=== PATIENT | male | born 1975 | race Caucasian/White ===

== ENCOUNTER 2017-10-11 17:20 | Inpatient (IN) | payer SELFPAY ==
[~2017-10-11] VITALS: Ht 162.6 cm; Wt 75.4 kg
[2017-10-11 18:56] LABS: CALCIUM 8.4 mg/dL (8.5-10.1); CHLORIDE SERUM 97 mmol/L (98-107); CREATININE SERUM 1.1 mg/dL (0.7-1.3); GFR1 > 60 mL/min; GLUCOSE SERUM 154 mg/dL (74-106); POTASSIUM SERUM 4.4 mmol/L (3.5-5.1); SODIUM SERUM 132 mmol/L (136-145)
[2017-10-11 19:00] LABS: ALKALINE PHOSPHATASE 92 U/L (46-116); ALT/SGPT 23 U/L (16-63); AMYLASE 28 U/L (25-115); AST/SGOT 14 U/L (15-37); BILIRUBIN TOTAL 0.9 mg/dL (0.20-1.00); LIPASE 57 IU/L (73-393); TOTAL PROTEIN, SERUM 7.1 g/dL (6.4-8.2)
[2017-10-11 19:01] LABS: ALBUMIN 3.3 g/dL (3.4-5.0)
[2017-10-11 19:15] LABS: PLATELET COUNT 436 x10^3mcL (130-400)
[2017-10-11 19:18] LABS: BAND NEUTROPHIL 0 % (0-10); BASOPHIL 0 % (0-2); MONOCYTE 3 % (0-7); SEGMENTED NEUTROPHILS 94 % (37-75)
[2017-10-11 19:19] LABS: PLATELET MORPHOLOGY PLATELETS INCREASED; rbc morphology (normal/abnorm) NORMAL (NORMAL)
[2017-10-11 20:56] VITALS: BP 126/77
[2017-10-11 21:22] LABS: CHOLESTEROL/HDL RATIO 2.8; MAGNESIUM 1.8 mg/dL (1.8-2.4); PHOSPHOROUS 3.2 mg/dL (2.5-4.9)
[2017-10-11 21:30] LABS: T3 TOTAL 1.12 ng/mL
[2017-10-11 21:31] LABS: FREE THYROXINE INDEX 2.5 ug/dL (1.4-4.5); T4(THYROXINE) 7.3 ug/dL (4.7-13.3)
[2017-10-12] VITALS (7 sets, daily range): BP systolic 106–124; BP diastolic 62–81
[2017-10-12 01:42] LABS: UA SPECIFIC GRAVITY 1.025 (1.005-1.035); microscopic required? YES; urine erythrocyte NEGATIVE (NEGATIVE)
[2017-10-12 02:06] LABS: AMPHETAMINE QUAL UR POSITIVE (NEG <=1000)
[2017-10-12 06:19] LABS: PLATELET COUNT 392 x10^3mcL (130-400); RED CELL DISTRIBUTION WIDTH 13.4 % (11.5-14.5)
[2017-10-12 06:25] LABS: CALCIUM 7.4 mg/dL (8.5-10.1); CHLORIDE SERUM 103 mmol/L (98-107); CREATININE SERUM 0.8 mg/dL (0.7-1.3); GFR1 > 60 mL/min; GLUCOSE SERUM 127 mg/dL (74-106); POTASSIUM SERUM 3.7 mmol/L (3.5-5.1); SODIUM SERUM 135 mmol/L (136-145)
[2017-10-12 11:00] LABS: BAND NEUTROPHIL 11 % (0-10); BASOPHIL 0 % (0-2); MONOCYTE 1 % (0-7); SEGMENTED NEUTROPHILS 84 % (37-75)
[2017-10-12 11:02] LABS: PLATELET MORPHOLOGY PLATELETS INCREASED; rbc morphology (normal/abnorm) NORMAL (NORMAL)
[2017-10-13 06:43] VITALS: BP 128/74
[2017-10-13 07:08] LABS: PLATELET COUNT 396 x10^3mcL (130-400); RED CELL DISTRIBUTION WIDTH 13.4 % (11.5-14.5)
[2017-10-13 07:22] LABS: CALCIUM 7.8 mg/dL (8.5-10.1); CARBON DIOXIDE 25.6 mmol/L (21-32); CHLORIDE SERUM 105 mmol/L (98-107); CREATININE SERUM 0.9 mg/dL (0.7-1.3); GFR1 > 60 mL/min; GLUCOSE SERUM 119 mg/dL (74-106); MAGNESIUM 1.8 mg/dL (1.8-2.4); PHOSPHOROUS 2.2 mg/dL (2.5-4.9); POTASSIUM SERUM 3.9 mmol/L (3.5-5.1); SODIUM SERUM 136 mmol/L (136-145)
[2017-10-13 08:54] VITALS: BP 134/94
[2017-10-13 11:50] LABS: BAND NEUTROPHIL 32 % (0-10); BASOPHIL 0 % (0-2); METAMYELOCTE 2 % (0-2); MONOCYTE 5 % (0-7); SEGMENTED NEUTROPHILS 54 % (37-75)
[2017-10-13 11:52] LABS: PLATELET MORPHOLOGY PLATELETS NORMAL
[2017-10-13 14:20] VITALS: BP 139/92
[2017-10-13 20:49] VITALS: BP 111/71
[2017-10-14 05:59] VITALS: BP 141/84
[2017-10-14 06:33] LABS: PLATELET COUNT 379 x10^3mcL (130-400); RED CELL DISTRIBUTION WIDTH 13.9 % (11.5-14.5)
[2017-10-14 06:47] LABS: CALCIUM 7.6 mg/dL (8.5-10.1); CARBON DIOXIDE 28.5 mmol/L (21-32); CHLORIDE SERUM 103 mmol/L (98-107); CREATININE SERUM 0.9 mg/dL (0.7-1.3); GFR1 > 60 mL/min; GLUCOSE SERUM 140 mg/dL (74-106); PHOSPHOROUS 2.1 mg/dL (2.5-4.9); POTASSIUM SERUM 3.8 mmol/L (3.5-5.1); SODIUM SERUM 136 mmol/L (136-145)
[2017-10-14 07:32] LABS: BAND NEUTROPHIL 3 % (0-10); MONOCYTE 2 % (0-7); SEGMENTED NEUTROPHILS 91 % (37-75); rbc morphology (normal/abnorm) NORMAL (NORMAL)
[2017-10-14 09:33] VITALS: BP 134/92
[2017-10-14 17:06] VITALS: BP 161/103
[2017-10-14 21:00] VITALS: BP 150/102
[2017-10-14 22:01] VITALS: BP 142/99
[2017-10-15 05:18] VITALS: BP 152/95
[2017-10-15 07:05] LABS: CALCIUM 7.6 mg/dL (8.5-10.1); CHLORIDE SERUM 101 mmol/L (98-107); CREATININE SERUM 0.8 mg/dL (0.7-1.3); GFR1 > 60 mL/min; GLUCOSE SERUM 130 mg/dL (74-106); POTASSIUM SERUM 3.3 mmol/L (3.5-5.1); RED CELL DISTRIBUTION WIDTH 14.1 % (11.5-14.5); SODIUM SERUM 136 mmol/L (136-145)
[2017-10-15 07:16] LABS: PLATELET COUNT 441 x10^3mcL (130-400)
[2017-10-15 09:41] VITALS: BP 168/96
[2017-10-15 11:35] LABS: BAND NEUTROPHIL 4 % (0-10); BASOPHIL 0 % (0-2); MONOCYTE 5 % (0-7); SEGMENTED NEUTROPHILS 86 % (37-75)
[2017-10-15 11:36] LABS: PLATELET MORPHOLOGY PLATELETS NORMAL
[2017-10-15 16:09] VITALS: BP 148/98
[2017-10-15 19:30] VITALS: BP 153/102
[2017-10-15 20:12] VITALS: BP 153/102
[2017-10-15 23:03] VITALS: BP 152/99
[2017-10-16] VITALS (12 sets, daily range): BP systolic 138–181; BP diastolic 89–109
[2017-10-16 06:35] LABS: BASOPHIL % 0.1 % (0-2); RED CELL DISTRIBUTION WIDTH 14.1 % (11.5-14.5)
[2017-10-16 06:39] LABS: PLATELET COUNT 452 x10^3mcL (130-400)
[2017-10-16 06:49] LABS: CALCIUM 8.1 mg/dL (8.5-10.1); CARBON DIOXIDE 30.1 mmol/L (21-32); CHLORIDE SERUM 104 mmol/L (98-107); CREATININE SERUM 0.7 mg/dL (0.7-1.3); GFR1 > 60 mL/min; GLUCOSE SERUM 141 mg/dL (74-106); PHOSPHOROUS 3.5 mg/dL (2.5-4.9); SODIUM SERUM 139 mmol/L (136-145)
[2017-10-17] VITALS (7 sets, daily range): BP systolic 149–168; BP diastolic 85–108
[2017-10-17 06:19] LABS: BASOPHIL % 0.2 % (0-2); RED CELL DISTRIBUTION WIDTH 14.3 % (11.5-14.5)
[2017-10-17 06:46] LABS: CALCIUM 8.3 mg/dL (8.5-10.1); CARBON DIOXIDE 28.6 mmol/L (21-32); CHLORIDE SERUM 103 mmol/L (98-107); CREATININE SERUM 0.6 mg/dL (0.7-1.3); GFR1 > 60 mL/min; GLUCOSE SERUM 108 mg/dL (74-106); POTASSIUM SERUM 3.4 mmol/L (3.5-5.1); SODIUM SERUM 137 mmol/L (136-145)
[2017-10-17 07:27] LABS: PLATELET COUNT 508 x10^3mcL (130-400)
[2017-10-18 05:38] VITALS: BP 146/101
[2017-10-18 06:21] LABS: CALCIUM 8.4 mg/dL (8.5-10.1); CARBON DIOXIDE 27.7 mmol/L (21-32); CHLORIDE SERUM 100 mmol/L (98-107); CREATININE SERUM 0.7 mg/dL (0.7-1.3); GFR1 > 60 mL/min; GLUCOSE SERUM 113 mg/dL (74-106); POTASSIUM SERUM 4.2 mmol/L (3.5-5.1); SODIUM SERUM 136 mmol/L (136-145)
[2017-10-18 06:35] LABS: BASOPHIL % 0.2 % (0-2)
[2017-10-18 07:04] LABS: PLATELET COUNT 660 x10^3mcL (130-400); RED CELL DISTRIBUTION WIDTH 14.6 % (11.5-14.5)
[2017-10-18 08:47] VITALS: BP 116/77; BP 165/99
[2017-10-18 11:00] VITALS: BP 145/78
[2017-10-18 18:13] VITALS: BP 123/78
[2017-10-18 21:00] VITALS: BP 138/87
[2017-10-19 05:05] VITALS: BP 144/85
[2017-10-19 07:03] LABS: RED CELL DISTRIBUTION WIDTH 14.4 % (11.5-14.5)
[2017-10-19 07:05] LABS: CALCIUM 8.5 mg/dL (8.5-10.1); CARBON DIOXIDE 28.4 mmol/L (21-32); CHLORIDE SERUM 100 mmol/L (98-107); CREATININE SERUM 0.8 mg/dL (0.7-1.3); GFR1 > 60 mL/min; GLUCOSE SERUM 121 mg/dL (74-106); MAGNESIUM 2.1 mg/dL (1.8-2.4); PHOSPHOROUS 4.3 mg/dL (2.5-4.9); POTASSIUM SERUM 4.1 mmol/L (3.5-5.1); SODIUM SERUM 135 mmol/L (136-145)
[2017-10-19 07:24] LABS: PLATELET COUNT 692 x10^3mcL (130-400)
[2017-10-19 08:52] VITALS: BP 140/93
[2017-10-19 09:57] LABS: MONOCYTE 7 % (0-7); SEGMENTED NEUTROPHILS 63 % (37-75)
[2017-10-19 09:58] LABS: BAND NEUTROPHIL 6 % (0-10); BASOPHIL 0 % (0-2); PLATELET MORPHOLOGY PLATELETS INCREASED; rbc morphology (normal/abnorm) ABNORMAL (NORMAL); tear drop cell (dacryocyte) 1+
[2017-10-19 17:50] VITALS: BP 161/113
[2017-10-19 21:08] VITALS: BP 145/107
[2017-10-20 05:05] VITALS: BP 134/92
[2017-10-20 07:05] LABS: CALCIUM 8.7 mg/dL (8.5-10.1); CARBON DIOXIDE 27.9 mmol/L (21-32); CHLORIDE SERUM 100 mmol/L (98-107); GFR1 > 60 mL/min; GLUCOSE SERUM 124 mg/dL (74-106); POTASSIUM SERUM 4.4 mmol/L (3.5-5.1); SODIUM SERUM 135 mmol/L (136-145)
[2017-10-20 07:46] LABS: RED CELL DISTRIBUTION WIDTH 14.8 % (11.5-14.5)
[2017-10-20 07:54] LABS: PLATELET COUNT 808 x10^3mcL (130-400)
[2017-10-20 09:39] VITALS: BP 142/93
[2017-10-20 10:09] LABS: BASOPHIL 0 % (0-2); MONOCYTE 6 % (0-7); SEGMENTED NEUTROPHILS 65 % (37-75)
[2017-10-20 10:10] LABS: BAND NEUTROPHIL 6 % (0-10)
[2017-10-20 10:12] LABS: rbc morphology (normal/abnorm) ABNORMAL (NORMAL)
[2017-10-20 10:17] LABS: tear drop cell (dacryocyte) 1+
[2017-10-20 17:44] VITALS: BP 154/95
[2017-10-20 19:30] VITALS: BP 144/92
[2017-10-21 06:02] VITALS: BP 129/80
[2017-10-21 07:34] LABS: CALCIUM 8.3 mg/dL (8.5-10.1); CARBON DIOXIDE 27.2 mmol/L (21-32); CHLORIDE SERUM 101 mmol/L (98-107); GFR1 > 60 mL/min; GLUCOSE SERUM 125 mg/dL (74-106); POTASSIUM SERUM 4.3 mmol/L (3.5-5.1); SODIUM SERUM 135 mmol/L (136-145)
[2017-10-21 07:39] LABS: BASOPHIL % 0.3 % (0-2); RED CELL DISTRIBUTION WIDTH 14.4 % (11.5-14.5)
[2017-10-21 07:57] LABS: PLATELET COUNT 903 x10^3mcL (130-400)
[2017-10-21 09:32] VITALS: BP 123/81
[2017-10-21 18:16] VITALS: BP 130/79
[2017-10-21 19:30] VITALS: BP 147/93
[2017-10-21 22:02] VITALS: BP 137/89
[2017-10-21 22:13] VITALS: BP 109/41
[2017-10-22 06:04] VITALS: BP 137/86
[2017-10-22 06:16] VITALS: BP 121/70
[2017-10-22 07:23] LABS: BASOPHIL % 0.2 % (0-2); RED CELL DISTRIBUTION WIDTH 14.3 % (11.5-14.5)
[2017-10-22 07:34] LABS: CALCIUM 7.9 mg/dL (8.5-10.1); CARBON DIOXIDE 30.1 mmol/L (21-32); CHLORIDE SERUM 105 mmol/L (98-107); CREATININE SERUM 0.9 mg/dL (0.7-1.3); GFR1 > 60 mL/min; GLUCOSE SERUM 111 mg/dL (74-106); POTASSIUM SERUM 4.2 mmol/L (3.5-5.1); SODIUM SERUM 139 mmol/L (136-145)
[2017-10-22 08:03] LABS: PLATELET COUNT 867 x10^3mcL (130-400)
[2017-10-22 10:41] VITALS: BP 122/80
[2017-10-22 17:45] VITALS: BP 132/82
[2017-10-22 21:49] VITALS: BP 144/85
[2017-10-23 06:06] VITALS: BP 140/79
[2017-10-23 06:39] LABS: BASOPHIL % 0.2 % (0-2); RED CELL DISTRIBUTION WIDTH 14.5 % (11.5-14.5)
[2017-10-23 06:57] LABS: CALCIUM 8.3 mg/dL (8.5-10.1); CHLORIDE SERUM 102 mmol/L (98-107); CREATININE SERUM 0.9 mg/dL (0.7-1.3); GFR1 > 60 mL/min; GLUCOSE SERUM 108 mg/dL (74-106); POTASSIUM SERUM 3.6 mmol/L (3.5-5.1); SODIUM SERUM 136 mmol/L (136-145)
[2017-10-23 07:04] LABS: PLATELET COUNT 861 x10^3mcL (130-400)
[2017-10-23 10:10] VITALS: BP 137/81
[2017-10-23 11:17] VITALS: Ht 162.6 cm; Wt 75.4 kg
[2017-10-23] MEDS ORDERED: ZES20 PO ×2 (12:50→15:43)
[2017-10-23] MEDS ORDERED: METOPROLOL TART50 MG PO (12:51)
[2017-10-23] MEDS ORDERED: COL100 PO ×2 (12:52→15:43)
[2017-10-23] MEDS ORDERED: AFRNS (12:53)
[2017-10-23] MEDS ORDERED: ZOF4 PO (12:56)
[2017-10-23] MEDS ORDERED: NORCO 10-325 T1 EACH PO (12:58)
[2017-10-23] MEDS ORDERED: GAS RELIEF 8080 MG PO (13:00)
[2017-10-23] MEDS ORDERED: FLA500 PO ×2 (13:01→15:43)
[2017-10-23] MEDS ORDERED: LAC PO (13:03)
[2017-10-23] MEDS ORDERED: LEV500 PO (13:03)
[2017-10-23] MEDS ORDERED: ASPIRIN ADULT L81 M5 PO (13:35)
[2017-10-23 13:46] VITALS: BP 137/81
[2017-10-23 14:20] VITALS: BP 124/83
[2017-10-23] MEDS ORDERED: LEVAQUIN500 M1 PO (15:43)
[2017-10-23] MEDS ORDERED: GOOD SENSE ASPI81 M3 PO (15:43)
[2017-10-23] MEDS ORDERED: METOPROLOL TART25 M1 NG (15:43)
[2017-10-23] MEDS ORDERED: NOR10T PO (15:43)
== END 2017-10-23 15:39 | disposition home or self-care (01) | DRG 853 ==
LOC: ED 17:20 → DU 20:14 → MU 20:14 → DU 20:47 → MU 10-12 09:25
PROVIDERS: Emergency Medicine; Surgery; ADMIT Family Medicine
PROC: 0D1N0Z4 Bypass Sigmoid Colon to Cutaneous, Open Approach (ICD-10-PCS; 2017-10-13)
PROC: 0DBN0ZZ Excision of Sigmoid Colon, Open Approach (ICD-10-PCS; principal; 2017-10-13 14:30)
DX: A41.9 Sepsis, unspecified organism (principal); N17.0 Acute kidney failure with tubular necrosis; K57.20 Diverticulitis of large intestine with perforation and abscess without bleeding; E44.1 Mild protein-calorie malnutrition; E87.1 Hypo-osmolality and hyponatremia; N39.0 Urinary tract infection, site not specified; R80.9 Proteinuria, unspecified; E83.39 Other disorders of phosphorus metabolism; F15.10 Other stimulant abuse, uncomplicated; Z83.3 Family history of diabetes mellitus; R73.03 Prediabetes; I16.0 Hypertensive urgency; Z68.28 Body mass index [BMI] 28.0-28.9, adult
CPT/HCPCS: 82962; 83880; 84439; 94150; 97110-GP; 97116-GP; 97530-GP; J0330; J0690; J0694; J1580; J1644; J1885; J1940; J1956; J2250; J2270; J2405; J2543; J2704; J2710; J3010; J3480; J3490; J7030; J7050; J7120; J7131; P9047; Q0092; Q9963; Q9967